=== PATIENT | female | born 1950 | race Hispanic/Latino ===

== ENCOUNTER 2018-06-05 13:48 | Emergency (ER) | payer MEDICARE ==
[~2018-06-05] VITALS: Ht 154.9 cm; Wt 72.1 kg
[~2018-06-05 13:48] MED LIST: AMLODIPINE BESY10 MG; AMLODIPINE BESYL5 MG PO; ASPIRIN81 M1 PO; ATENOLOL50 MG PO; GLIPIZIDE5 MG PO; HYDROCHLOROTHIA25 MG PO; LEVOTHROID25 MCG; LEVOTHYROXINE75 MCG PO; LOVASTATIN20 MG PO; VASOTEC10 M1 PO
--- OUTSIDE RECORDS SUMMARY | 2018-06-05 13:51 | XMS REPORT | Summary of Care ---
Author Author [facility] Organization [facility] Address Unknown Phone Unavailable Encounter BRYANT Morales(MYNOR) [id number] Date(s): 08/30/15 - 08/30/15 [facility] [address] [place] [address]- Discharge Disposition: Home Attending Physician: Jayson Valdes MD Referring Physician: Jayson Valdes MD Vital Signs Most recent to 1 oldest [Reference Range]: Height 154.94 cm (08/30/15 7:16 AM) Blood Pressure 140/72 mmHg [90-140/60-90 mmHg] (08/30/15 7:41 AM) Respiratory Rate 20 BRMIN [14-20 BRMIN] (08/30/15 7:41 AM) Weight 71.364 kg (08/30/15 7:16 AM) Body Mass Index 29.73 m2 (08/30/15 7:16 AM) Problem List Condition Effective Dates Status Health Status Informant HTN - Active Hypertension(Confirm ed) Hyperlipidemia(Confi Active rmed) Hypothyroid(Confirme Active d) Thyroid Resolved cancer(Confirmed) Allergies, Adverse Reactions, Alerts Substance Reaction Severity Status NKDA Active Medications amLODIPine 10 mg oral tablet 10 mg=1 tab, PO, Daily, # 30 tab, 0 Refill(s) Start Date: 08/30/15 Status: Ordered aspirin 81 mg tablet, enteric coated 81 mg=1 tab, PO, Daily, # 90 tab, 3 Refill(s) Start Date: 08/30/15 Status: Ordered atenolol 50 mg oral tablet 50 mg=1 tab, PO, BID, # 30 tab, 0 Refill(s) Start Date: 08/30/15 Status: Ordered enalapril 20 mg oral tablet 20 mg=1 tab, PO, BID, # 30 tab, 0 Refill(s) Start Date: 08/30/15 Status: Ordered levothyroxine 75 mcg (0.075 mg) oral tablet 75 microgram=1 tab, PO, Daily, # 30 tab, 0 Refill(s) Start Date: 08/30/15 Status: Ordered normal saline 0.9% IV 1,000 mL 1,000 mL, Rate: 100 ml/hr, Infuse over: 10 hr, Route: IV, Dosing Weight 71.364 k g, Total Volume: 1,000, Start date: 08/30/15 7:23:00, Duration: 30 day, Stop chemo e: 09/29/15 7:22:00 Start Date: 08/30/15 Stop Date: 08/30/15 Status: Discontinued pravastatin 20 mg oral tablet 20 mg=1 tab, PO, Bedtime, # 30 tab, 0 Refill(s) Start Date: 08/30/15 Status: Ordered Results ELECTROLYTES Most recent to 1 oldest [Reference Range]: Sodium Lvl [135-145 140 mEq/L mEq/L] (08/30/15 7:25 AM) Potassium Lvl 3.9 mEq/L [3.5-5.1 mEq/L] (08/30/15 7:25 AM) Chloride Lvl [95-109 108 mEq/L mEq/L] (08/30/15 7:25 AM) CO2 [24-32 mEq/L] 26 mEq/L (08/30/15 7:25 AM) AGAP [10.0-20.0 9.9 mEq/L mEq/L] *LOW* (08/30/15 7:25 AM) CHEM PANEL Most recent to 1 oldest [Reference Range]: Creatinine Lvl 0.92 mg/dL [0.50-1.40 mg/dL] (08/30/15 7:25 AM) eGFR 66 mL/min/1.73m2 1 *NA* (08/30/15 7:25 AM) BUN [7-22 mg/dL] 17 mg/dL (08/30/15 7:25 AM) Glucose Lvl [70-99 92 mg/dL mg/dL] (08/30/15 7:25 AM) Calcium Lvl 9.0 mg/dL [8.5-10.5 mg/dL] (08/30/15 7:25 AM) 1Result Comment: The eGFR is calculated using the CKD-EPI formula. In most young, healthy individuals the eGFR will be >90 mL/min/1.73m2. The eGFR declines with age. An eGFR of 60-89 may be normal in some populations, particularly the elderly, for whom the CKD-EPI formula has not been extensively validated. Use of the eGFR is not recommended in the following populations: Individuals with unstable creatinine concentrations, including patients and those with serious co-morbid conditions. Patients with extremes in muscle mass or diet. The data above are obtained from the National Kidney Disease Education Program ( NKDEP) which additionally recommends that when the eGFR is used in patients with extremes of body mass index for purposes of drug dosing, the eGFR should be mul tiplied by the estimated BMI. LIPIDS Most recent to 1 oldest [Reference Range]: CHD Risk [3.90-5.80] 2.90 *LOW* (08/30/15 7:25 AM) Chol [<=199 mg/dL] 197 mg/dL (08/30/15 7:25 AM) Trig [<=149 mg/dL] 125 mg/dL (08/30/15 7:25 AM) HDL [>=61 mg/dL] 68 mg/dL (08/30/15 7:25 AM) LDL (Calculated) 104 mg/dL [<=99 mg/dL] *HI* (08/30/15 7:25 AM) VLDL 25 *NA* (08/30/15:25 AM) HEMATOLOGY Most recent to 1 oldest [Reference Range]: WBC [3.7-10.4 K/CMM] 5.8 K/CMM (08/30/15 7:25 AM) RBC [4.20-5.40 4.19 M/CMM M/CMM] *LOW* (08/30/15 7:25 AM) Hgb [12.0-16.0 g/dL] 12.0 g/dL (08/30/15 7:25 AM) Hct [36.0-48.0 %] 36.7 % (08/30/15 7:25 AM) MCV [80.0-98.0 fL] 87.4 fL (08/30/15 7:25 AM) MCH [27.0-31.0 pg] 28.6 pg (08/30/15 7:25 AM) MCHC [32.0-36.0 32.7 g/dL g/dL] (08/30/15 7:25 AM) RDW [11.5-14.5 %] 13.7 % (08/30/15 7:25 AM) Platelet [133-450 158 K/CMM K/CMM] (08/30/15 7:25 AM) MPV [7.4-10.4 fL] 9.3 fL (08/30/15 7:25 AM) Segs [45.0-75.0 %] 62.1 % (08/30/15 7:25 AM) Lymphocytes 25.4 % [20.0-40.0 %] (08/30/15 7:25 AM) Monocytes [2.0-12.0 8.3 % %] (08/30/15 7:25 AM) Eosinophils [0.0-4.0 3.6 % %] (08/30/15 7:25 AM) Basophils [0.0-1.0 0.6 % %] (08/30/15 7:25 AM) Segs-Bands # 3.6 K/CMM [1.5-8.1 K/CMM] (08/30/15 7:25 AM) Lymphocytes # 1.5 K/CMM [1.0-5.5 K/CMM] (08/30/15 7:25 AM) Monocytes # [0.0-0.8 0.5 K/CMM K/CMM] (08/30/15 7:25 AM) Eosinophils # 0.2 K/CMM [0.0-0.5 K/CMM] (08/30/15 7:25 AM) Immunizations No data available for this section Procedures Procedure Date Related Diagnosis Body Site Hysterectomy Thyroidectomy Social History Social History Type Response Smoking Status Never smoker; Exposure to Tobacco Smoke None; Cigarette Smoking Last 365 Days No; Reg Smoking Cessation Counseling No Assessment and Plan No data available for this section
--- OUTSIDE RECORDS SUMMARY | 2018-06-05 13:51 | XMS REPORT | Continuity of Care Document ---
Author Author [facility] Interface Address Unknown Phone Unavailable Problems Problem Status Onset Date Classification Date Reported Comments Source UNK Active 08/17/2015 [facility] HTN - Hypertension Active Problem 09/02/2015 [facility] Hyperlipidemia Active Problem 09/02/2015 [facility] Hypothyroid Active Problem 09/02/2015 [facility] Thyroid cancer Resolved Problem 09/02/2015 [facility] ATHSCL [place] ARTERIES OF EXTRM W INTRMT Active [facility] Medications Medication Details Route Status Patient Instructions Ordering Provider Order Date Source Aspirin 81 MG Enteric Coated Tablet 81 mg=1 tab, PO, Daily, # 90 tab, 3 Refill(s) Active 08/30/2015 [facility] Atenolol 50 MG Oral Tablet 50 mg=1 tab, PO, BID, # 30 tab, 0 Refill(s) Active 08/30/2015 [facility] amLODIPine 10 mg oral tablet 10 mg=1 tab, PO, Daily, # 30 tab, 0 Refill(s) Active 08/30/2015 [facility] enalapril 20 mg oral tablet 20 mg=1 tab, PO, BID, # 30 tab, 0 Refill(s) Active 08/30/2015 [facility] pravastatin 20 mg oral tablet 20 mg=1 tab, PO, Bedtime, # 30 tab, 0 Refill(s) Active 08/30/2015 [facility] levothyroxine 75 mcg (0.075 mg) oral tablet 75 microgram=1 tab, PO, Daily, # 30 tab, 0 Refill(s) Active 08/30/2015 [facility] normal saline 0.9% IV 1,000 mL 1,000 mL, Rate: 100 ml/hr, Infuse over: 10 hr, Route: IV, Dosing Weight 71.364 kg, Total Volume: 1,000, Start date: 08/30/15 7:23:00, Duration: 30 day, Stop date: 09/29/15 7:22:00 Inactive 08/30/2015 [facility] Allergies, Adverse Reactions, Alerts Substance Category Reaction Severity Reaction type Status Date Reported Comments Source Immunizations Immunization Date Given Site Status Last Updated Comments Source Results Order Name Results Value Reference Range Date Interpretation Comments Source CHEM PANEL BUN 17 mg/dL 7 - 22 08/30/2015 [facility] CHEM PANEL Glucose Lvl 92 mg/dL 70 - 99 08/30/2015 [facility] CHEM PANEL Chloride Lvl 108 meq/L 95 - 109 08/30/2015 [facility] CHEM PANEL Potassium Lvl 3.9 meq/L 3.5 - 5.1 08/30/2015 [facility] CHEM PANEL Sodium Lvl 140 meq/L 135 - 145 08/30/2015 [facility] CHEM PANEL Creatinine Lvl 0.92 mg/dL 0.50 - 1.40 08/30/2015 [facility] CHEM PANEL Calcium Lvl 9.0 mg/dL 8.5 - 10.5 08/30/2015 [facility] CHEM PANEL CO2 26 meq/L 24 - 32 08/30/2015 [facility] CHEM PANEL eGFR 66 mL/min/1.73m2 08/30/2015 Result Comment: The eGFR is calculated using the [...] from the National Kidney Disease Education Program (NKDEP) which additionally recommends that when the eGFR is used in patients with extremes of body mass index for purposes of drug dosing, the eGFR should be multiplied by the estimated BMI. [facility] CHEM PANEL AGAP 9.9 meq/L 10.0 - 20.0 08/30/2015 [facility] HEMATOLOGY Platelet 158 K/CMM 133 - 450 08/30/2015 [facility] HEMATOLOGY RDW 13.7 % 11.5 - 14.5 08/30/2015 [facility] MPV 9.3 fL 7.4 - 10.4 08/30/2015 [facility] MCHC 32.7 g/dL 32.0 - 36.0 08/30/2015 [facility] MCH 28.6 pg 27.0 - 31.0 08/30/2015 [facility] MCV 87.4 fL 80.0 - 98.0 08/30/2015 [facility] HEMATOLOGY Hct 36.7 % 36.0 - 48.0 08/30/2015 [facility] HEMATOLOGY RBC 4.19 M/CMM 4.20 - 5.40 08/30/2015 [facility] HEMATOLOGY Hgb 12.0 g/dL 12.0 - 16.0 08/30/2015 [facility] HEMATOLOGY WBC 5.8 K/CMM 3.7 - 10.4 08/30/2015 [facility] HEMATOLOGY Lymphocytes 25.4 % 20.0 - 40.0 08/30/2015 [facility] HEMATOLOGY Segs 62.1 % 45.0 - 75.0 08/30/2015 [facility] HEMATOLOGY Monocytes 8.3 % 2.0 - 12.0 08/30/2015 [facility] HEMATOLOGY Eosinophils 3.6 % 0.0 - 4.0 08/30/2015 [facility] HEMATOLOGY Basophils 0.6 % 0.0 - 1.0 08/30/2015 [facility] HEMATOLOGY Segs-Bands # 3.6 K/CMM 1.5 - 8.1 08/30/2015 [facility] HEMATOLOGY Eosinophils # 0.2 K/CMM 0.0 - 0.5 08/30/2015 [facility] HEMATOLOGY Lymphocytes # 1.5 K/CMM 1.0 - 5.5 08/30/2015 [facility] HEMATOLOGY Monocytes # 0.5 K/CMM 0.0 - 0.8 08/30/2015 [facility] LIPIDS VLDL 25 08/30/2015 [facility] LIPIDS LDL (Calculated) 104 mg/dL <=99 mg/dL 08/30/2015 [facility] LIPIDS Chol 197 mg/dL <=199 mg/dL 08/30/2015 [facility] LIPIDS HDL 68 mg/dL >=61 mg/dL 08/30/2015 [facility] LIPIDS Trig 125 mg/dL <=149 mg/dL 08/30/2015 [facility] LIPIDS CHD Risk 2.90 3.90 - 5.80 08/30/2015 [facility] Vital Signs Vital Sign Value Date Comments Source Respitory Rate 20 08/30/2015 [facility] Systolic (mm Hg) 140 08/30/2015 [facility] Diastolic (mm Hg) 72 08/30/2015 [facility] Height 154.94 cm 08/30/2015 [facility] BMI Calculated 29.73 08/30/2015 [facility] Weight 71.364 08/30/2015 [facility] Encounters Location Location Details Encounter Type Encounter Number Reason For Visit Attending Provider ADM Date DC Date Status Source [facility] Bedded Outpatient [id number] Jayson Keisha 08/30/2015 08/30/2015 [facility] Procedures Procedure Code Date Perfomer Comments Source Hysterectomy [id number] [facility] Thyroidectomy [id number] [facility]
--- NOTE | 2018-06-05 16:13 | Diagnostic Imaging Report ---
EXAMINATION: CXR 2 VIEW - HOPD INDICATION: Chest pain ^[id number] ^1550 COMPARISON: 07/21/2015 FINDINGS: PA and lateral views TUBES and LINES: None. LUNGS: Lungs are well inflated. Lungs are clear. There is no evidence of pneumonia or pulmonary edema. PLEURA: No pleural effusion or pneumothorax. HEART AND MEDIASTINUM: The cardiomediastinal silhouette is unremarkable. BONES AND SOFT TISSUES: No acute osseous lesion. Soft tissues are unremarkable. UPPER ABDOMEN: No free air under the diaphragm. IMPRESSION: No acute thoracic abnormality. Signed by: Dr. Jimy Leo MD on 06/05/2018 4:09 PM
== END 2018-06-05 17:47 | disposition home or self-care (01) ==
LOC: FSED 13:48
DX: R07.9 Chest pain, unspecified (principal); R00.2 Palpitations; I10 Essential (primary) hypertension; E03.9 Hypothyroidism, unspecified; E78.5 Hyperlipidemia, unspecified
CPT/HCPCS: 71046; 80053; 81003; 82553; 84484; 85025; 93005; 99284

== ENCOUNTER → 2019-05-07 | Day surgery (SDC) | payer MEDICARE ==
[2019-04-25 12:31] LABS: BASOPHILS % 0.5 % (0.0-1.0); EOSINOPHILS # (AUTO) 0.2 (0.0-0.4); EOSINOPHILS % 2.6 % (0.0-6.0); HEMATOCRIT 38.8 % (34.2-44.1); HEMOGLOBIN 12.8 g/dL (12.0-16.0); LYMPHOCYTES # (AUTO) 1.9 (1.0-3.2); LYMPHOCYTES % 31.1 % (18.0-39.1); MEAN CORPUSCULAR HEMOGLOBIN 29.4 pg (28-32); MEAN CORPUSCULAR VOLUME 89.2 fL (81-99); MONOCYTES # (AUTO) 0.5 (0.2-0.8); MONOCYTES % 8.4 % (4.4-11.3); NEUTROPHILS # (AUTO) 3.5 (2.1-6.9); NEUTROPHILS % 56.9 % (38.7-80.0); PLATELET COUNT 195 x10e3/uL (140-360); RED BLOOD COUNT 4.35 x10e6/uL (3.6-5.1); RED CELL DISTRIBUTION WIDTH 13.3 % (11.7-14.4)
[~2019-05-07] MED LIST changes: +EPHEDRINE SULFATE INJ 50 MG/10 ML SYR ONE; +FENTANYL CITRATE/PF 100MCG/2 ML INJ ONE; +HYOSCYAMINE 0.125 MG TAB ONE; +LEXAPRO10 MG PO; +LIDOCAINE HCL 2% LOCAL INJ 5 ML SDV VIAL INJ ONE; +MIDAZOLAM HCL 2 MG/2 ML VIAL ONE; +PRAVASTATIN SOD20 MG PO; +PROPOFOL IV EMULSION 10 MG/ML 50 ML VIAL ONE
--- OUTSIDE RECORDS SUMMARY | 2019-05-07 10:28 | XMS REPORT ---
Author Author [facility] Address Unknown Phone Unavailable Care Team Providers Care Formula Room Worker Name Role Phone Keri ERAZO Unavailable Unavailable Problems This patient has no known problems. Allergies, Adverse Reactions, Alerts This patient has no known allergies or adverse reactions. Medications This patient has no known medications. Results Test Description Test Time Test Comments Text Results Atomic Results Result Comments SCR MAMM BILATERAL NATASHA CAD DIGITAL 2019-02-25 09:45:52 - SCR MAMM BILATERAL NATASHA CAD DIGITALBILATERAL DIGITAL SCREENING MAMMOGRAM 3D/2D WITH CAD: 02/25/2019CLINICAL: Asymptomatic. Digital breast tomosynthesis was performed in addition to routine CC and MLO views. Current mammographic images were evaluated by either a [employer] M-Vu or a [employer] ImageChecker CAD (computer aided detection system). Comparison is made to exams dated 01/08/2018 mammogram, 2016 mammogram, and 09/17/2016 mammogram - [facility]. There are scattered fibroglandular tissues in both breasts. No suspicious mass, architectural distortion, malignant type calcification, or lymph node abnormality detected. Breast architecture is stable compared to prior exams.IMPRESSION: NEGATIVEThere is no mammographic evidence of malignancy. Resume annual screening mammography in one year. Javan Roman M.D. ss/penrad:02/25/2019 09:45:52 Squirrel Man: Gertrudis JAMES, [facility] sent: BIRADS 1-2 Normal Mammogram BI-RADS: 1 Neg ative CXR 2 VIEW - HOPD 2018-06-05 16:09:[address] [address] Patient Name: SCOTT DE LEÓN MR #: [id number] : 1950 Age/Sex: 68/F Req #: [id number] Adm Physician: Ordered by: SWETA ERAZO MD Report #: [id number] Location: [facility] Room/Bed: Procedure: [id number] HOPD/CXR 2 VIEW - [facility] Exam Date: 06/05/18 Exam Time: 1550 REPORT STATUS: Signed EXAMINATION: CXR 2 VIEW - HOPD INDICATION: Chest pain [id number] 1550 COMPARISON: 07/21/2015 FINDINGS: PA and lateral views TUBES and LINES: None. LUNGS: Lungs are well inflated. Lungs are clear. There is no evidence of pneumonia or pulmonary edema. PLEURA: No pleural effusion or pneumothorax. HEART AND MEDIASTINUM: The cardiomediastinal silhouette is unremarkable. BONES AND SOFT TISSUES: No acute osseous lesion. Soft tissues are unremarkable. UPPER ABDOMEN: No free air under the diaphragm. IMPRESSION: No acute thoracic abnormality. Signed by: Dr. Jimy Handley MD on 06/05/2018 4:09 PM Dictated By: JIMY HANDLEY MD [id number] Transcribed By: LUISITO on 06/05/18 [id number] COPY TO: SWETA ERAZO MD
--- NOTE | 2019-05-07 15:55 | Operative Report ---
DATE OF PROCEDURE: 05/07/2019 SURGEON: Emiliano Trujillo MD PROCEDURES PERFORMED: Esophagogastroduodenoscopy with biopsies and a colonoscopy with polypectomy. INDICATIONS FOR EGD: Dyspepsia. INDICATIONS FOR COLONOSCOPY: Colorectal cancer screening. MEDICATIONS: The patient was done under MAC. Please see anesthesiologist's note. PROCEDURE IN DETAIL: With the patient in left lateral decubitus position, a flexible fiberoptic Olympus gastroscope was introduced into the esophagus under direct visualization without any difficulty. There was some patchy erythema noted in distal esophagus. The scope was then advanced with ease into the stomach, traversing a small sliding hiatal hernia. The mucosa overlying the antrum and the body revealed some patchy erythema and [id number] edema, and biopsies were obtained and sent to stain for H pylori. An approximately 1 cm sessile friable lesion was noted in the antrum that was biopsied. Pylorus was intubated with ease and the scope was advanced all the way to the second portion of the duodenum. The scope was then withdrawn slowly and biopsies were obtained from the proximal second portion and duodenal bulb to rule out sprue. The scope was then withdrawn back into the stomach and retroflexed mucosa overlying the fundus and cardia appeared to be within normal limits. The scope was then straightened out. The stomach was decompressed. The scope was subsequently withdrawn. The patient tolerated the procedure well. IMPRESSION: 1. Distal esophagitis. 2. Small hiatal hernia. 3. Gastritis, biopsied. Biopsies sent to stain for Helicobacter pylori. 4. Approximately 1 cm sessile friable lesion, antrum biopsied. 5. Rule out sprue. PLAN: Follow up histology. Initiate Protonix 40 mg one p.o. q.a.m. before meals. The patient was then turned around. After adequate lubrication of the anal canal, a flexible fiberoptic Olympus colonoscope was inserted into the rectum with ease and advanced all the way to the cecum. Two minute polyps were removed per cold snare polypectomy from the cecum. One minute polyp was hot biopsied in the ascending colon. The transverse appeared to be within normal limits. Diverticular disease was noted to involve the distal descending and the sigmoid. The rectum appeared to be within normal limits. The scope was then retroflexed into the distal rectum and the area around the dentate line appeared to be within normal limits. The scope was then straightened out. It was subsequently withdrawn. The patient tolerated the procedure well. IMPRESSION: 1. Cecal polyps x2, removed per cold snare polypectomy. 2. Ascending colon polyp, hot biopsied. 3. Diverticulosis. PLAN: Followup histology. Initiate high-fiber, low-fat diet. Initiate high-fiber supplement. The patient might benefit from a followup colonoscopy in 3 to 5 years. Emiliano Trujillo MD [facility]/MODSalma /[id number] cc: Agusto Alston DO
== END | disposition home or self-care (01) ==
LOC: OR 09:55
PROVIDERS: ATTEND Internal Medicine Gastroenterology
DX: R10.13 Epigastric pain (principal); R14.2 Eructation; I10 Essential (primary) hypertension; Z68.30 Body mass index [BMI] 30.0-30.9, adult; K20.9 Esophagitis, unspecified; K44.9 Diaphragmatic hernia without obstruction or gangrene; K29.70 Gastritis, unspecified, without bleeding; D13.1 Benign neoplasm of stomach; D12.0 Benign neoplasm of cecum; K57.30 Diverticulosis of large intestine without perforation or abscess without bleeding; K29.80 Duodenitis without bleeding; B96.81 Helicobacter pylori [H. pylori] as the cause of diseases classified elsewhere
CPT/HCPCS: 36415; 43239; 45384; 45385; 85025; 88305; 88312; 93005; J2001; J2250; J2704; J3010; 45378

== ENCOUNTER → 2021-06-04 | Outpatient (CLI) | payer MEDICARE ==
[~2021-06-04] MED LIST changes: -EPHEDRINE SULFATE INJ 50 MG/10 ML SYR ONE; -FENTANYL CITRATE/PF 100MCG/2 ML INJ ONE; -HYOSCYAMINE 0.125 MG TAB ONE; -LIDOCAINE HCL 2% LOCAL INJ 5 ML SDV VIAL INJ ONE; -MIDAZOLAM HCL 2 MG/2 ML VIAL ONE; -PROPOFOL IV EMULSION 10 MG/ML 50 ML VIAL ONE
== END ==
LOC: RAD 09:54
PROVIDERS: ATTEND Family Medicine
DX: R05.8 Other specified cough (principal)
CPT/HCPCS: 71046